=== PATIENT | male | born 1995 | race Two or more races ===

== ENCOUNTER 2018-10-18 08:51 | Emergency (ER) | payer BC ==
[~2018-10-18] VITALS: Ht 182.9 cm; Wt 95.3 kg
[2018-10-18] MEDS ORDERED: PAMELOR25 MG ORAL (09:00)
--- NOTE | 2018-10-18 09:00 | NUR ---
ED Nurse Note: Patient received alert and oriented, ambulatory, no s/sx of distress with oxygen saturation of 96% on room air. ST on monitor, 120s. Came in ER for complain of nausea and vomiting that started after midnight and diarrhea x3 since midnight. Patient complains of abdominal pain with level of 8/10. He reports last food eaten was last night specifically salad and boba and felt symptoms couple of hours after.
[2018-10-18 09:10] VITALS: BP 136/76
--- NOTE | 2018-10-18 09:12 | Emergency Room Report ---
History of Present Illness General Chief Complaint: Abdominal Pain Source: Patient Present Illness HPI Patient presents with complaints of what he reports as food poisoning reports that he had salad yesterday Soon after that he started having multiple episodes of vomiting diarrhea reports that he has a sensitive stomach lining and that was also irritated Pain is fairly diffuse however localizing to the left upper and lower abdomen denies any fevers denies any chest pain or shortness of breath Denies any blood in the vomit or diarrhea Denies any neck pain or photophobia denies any recent travel patient reports he had previous appendectomy Allergies: Coded Allergies: No Known Allergies (Unverified , 10/18/18) Patient History Past Medical History: see triage record Pertinent Family History: none Reviewed Nursing Documentation: PMH: Agreed; PSxH: Agreed Nursing Documentation-PMH Past Medical History: No History, Except For Hx Neurological Problems: Yes - MIGRAINES Review of Systems All Other Systems: negative except mentioned in HPI Physical Exam Vital Signs Date Time Temp Pulse Resp B/P (MAP) Pulse Ox O2 Delivery O2 Flow Rate FiO2 10/18/18 08:55 97.9 134 16 144/74 96 Room Air Sp02 EP Interpretation: reviewed, normal General Appearance: well appearing, no apparent distress Head: normocephalic, atraumatic Eyes: bilateral eye PERRL, bilateral eye EOMI ENT: hearing grossly normal, normal pharynx, TMs + canals normal, uvula midline Neck: full range of motion, supple, no meningismus, no bony tend Respiratory: lungs clear, normal breath sounds, no rhonchi, no respiratory distress, no retraction, no accessory muscle use Cardiovascular #1: normal peripheral pulses, no edema, no gallop, no JVD, no murmur, tachycardia Gastrointestinal: normal bowel sounds, non tender - However patient subjectively feels uncomfortable diffusely, soft, no mass, no organomegaly, non- distended, no guarding, no hernia, no pulsatile mass, no rebound Genitourinary: no CVA tenderness Musculoskeletal: normal inspection Neurologic: oriented x3, responsive, tub puller III-XII nml as tested, motor strength/ tone normal, sensory intact Psychiatric: mood/affect normal Skin: normal color, no rash, warm/dry, palpation normal Lymphatic: normal inspection, no adenopathy Medical Decision Making Diagnostic Impression: Primary Impression: Diarrhea Additional Impression: Vomiting ER Course With the history exam and presentation, multiple differentials considered, including but not limited to appendicitis, gastritis, cholecystitis, diverticulitis Patient had blood work initiated IV hydration White blood cell count is mildly elevated at 14 Patient was initially somewhat tachycardic as well Continues to do significantly better patient had extensive stay with repeat hydration On repeat evaluation patient reports that he feels significantly improved Given the lack of any abdominal pain CT imaging has not been obtained for further testing My consideration for appendicitis is low patient was given instructions regarding pain and fever to return to the ER emergently otherwise will have initial conservative outpatient trial Labs Test 10/18/18 09:20 White Blood Count 14.1 K/UL (4.8-10.8) Red Blood Count 5.92 M/UL (4.70-6.10) Hemoglobin 17.0 G/DL (14.2-18.0) Hematocrit 50.0 % (42.0-52.0) Mean Corpuscular Volume 84 FL (80-99) Mean Corpuscular Hemoglobin 28.7 PG (27.0-31.0) Mean Corpuscular Hemoglobin Concent 34.0 G/DL (32.0-36.0) Red Cell Distribution Width 11.6 % (11.6-14.8) Platelet Count 254 K/UL (150-450) Mean Platelet Volume 6.7 FL (6.5-10.1) Neutrophils (%) (Auto) % (45.0-75.0) Lymphocytes (%) (Auto) % (20.0-45.0) Monocytes (%) (Auto) % (1.0-10.0) Eosinophils (%) (Auto) % (0.0-3.0) Basophils (%) (Auto) % (0.0-2.0) Differential Total Cells Counted 100 Neutrophils % (Manual) 89 % (45-75) Lymphocytes % (Manual) 8 % (20-45) Monocytes % (Manual) 3 % (1-10) Eosinophils % (Manual) 0 % (0-3) Basophils % (Manual) 0 % (0-2) Band Neutrophils 0 % (0-8) Platelet Estimate Adequate Platelet Morphology Normal Red Blood Cell Morphology Normal Sodium Level 137 MMOL/L (136-145) Potassium Level 4.2 MMOL/L (3.5-5.1) Chloride Level 100 MMOL/L (98-107) Carbon Dioxide Level 26 MMOL/L (21-32) Anion Gap 11 mmol/L (5-15) Blood Urea Nitrogen 15 mg/dL (7-18) Creatinine 1.2 MG/DL (0.55-1.30) Estimat Glomerular Filtration Rate > 60 mL/min (>60) Glucose Level 118 MG/DL (74-106) Calcium Level 9.2 MG/DL (8.5-10.1) Total Bilirubin 0.5 MG/DL (0.2-1.0) Aspartate Amino Transf (AST/SGOT) 21 U/L (15-37) Alanine Aminotransferase (ALT/SGPT) 37 U/L (12-78) Alkaline Phosphatase 82 U/L (46-116) Total Protein 8.0 G/DL (6.4-8.2) Albumin 4.0 G/DL (3.4-5.0) Globulin 4.0 g/dL Albumin/Globulin Ratio 1.0 (1.0-2.7) Lipase 65 U/L (73-393) Last Vital Signs Date Time Temp Pulse Resp B/P (MAP) Pulse Ox O2 Delivery O2 Flow Rate FiO2 10/18/18 08:55 97.9 134 16 144/74 96 Room Air Status: improved Disposition: HOME, SELF-CARE Condition: Improved Scripts Metoclopramide Hcl* (REGLAN*) 10 Mg Tablet 10 MG ORAL THREE TIMES A DAY, #12 TAB Prov: Lulú Morales DO 10/18/18 Additional Instructions: Patient is provided with the discharge instructions notified to follow up with primary doctor in the next 2-3 days otherwise return to the er with any worsening symptoms. Please note that this report is being documented using [employer] technology. This can lead to erroneous entry secondary to incorrect interpretation by the dictating instrument. Lulú Morales DO Oct 18, 2018 09:12
[2018-10-18] MEDS ORDERED: Metoclopramide 10mg/2ml Inj IVP ONE (09:15)
[2018-10-18] MEDS ORDERED: DiphenhydrAMINE 50mg/ml Inj IVP ONE (09:15)
--- NOTE | 2018-10-18 09:30 | NUR ---
ED Nurse Note: Blood specimen sent to lab, waiting for result. Medications given as ordered, instructed to call for assistance to prevent fall after administering Diphenhydramine. Call light within reach. Girlfriend at bedside.
[2018-10-18 09:46] LABS: MEAN CORPUSCULAR VOLUME 84 FL (80-99); PLATELET COUNT 254 K/UL (150-450); RED BLOOD COUNT 5.92 M/UL (4.70-6.10); RED CELL DISTRIBUTION WIDTH 11.6 % (11.6-14.8); WHITE BLOOD COUNT 14.1 K/UL (4.8-10.8)
[2018-10-18 10:07] LABS: ANION GAP 11 mmol/L (5-15); BLOOD UREA NITROGEN 15 mg/dL (7-18); CALCIUM 9.2 MG/DL (8.5-10.1); CARBON DIOXIDE 26 MMOL/L (21-32); CHLORIDE 100 MMOL/L (98-107); CREATININE 1.2 MG/DL (0.55-1.30); POTASSIUM 4.2 MMOL/L (3.5-5.1); SODIUM 137 MMOL/L (136-145)
[2018-10-18 10:12] LABS: ALANINE AMINOTRANSFERASE 37 U/L (12-78); ALKALINE PHOSPHATASE 82 U/L (46-116); ASPARTATE AMINO TRANSFERASE 21 U/L (15-37); BILIRUBIN,TOTAL 0.5 MG/DL (0.2-1.0)
[2018-10-18 10:19] VITALS: BP 137/80
[2018-10-18] MEDS ORDERED: REGLAN10 MG ORAL (12:53)
[2018-10-18 13:00] VITALS: BP 130/78
[2018-10-18 13:05] VITALS: BP 137/80
--- NOTE | 2018-10-18 13:05 | NUR ---
ED Nurse Note: RODO explained lab results to patient. Patient reports relief of nausea. No more episodes of vomiting and diarrhea noted during stay. Patient's tachycardia improved. With order of discharge. Discharge instructions given to patient and prescriptions given and verbalized understanding. Left unit with girlfriend, no s/sx of distress. All belongings sent with patient. Discharged home.
== END 2018-10-18 13:05 | disposition home or self-care (01) ==
LOC: EMR 09:55
DX: R19.7 Diarrhea, unspecified (principal); R11.2 Nausea with vomiting, unspecified; Z87.891 Personal history of nicotine dependence
CPT/HCPCS: 36415; 80053; 83690; 85007; 85025; 96361; 96374; 96375; 99284; J1200; J2405; J2765; S0028